=== PATIENT | male | born 1990 | race Caucasian/White ===

== ENCOUNTER 2017-04-02 21:36 | Emergency (ER) | payer SELFPAY ==
[~2017-04-02] VITALS: Ht 190.5 cm; Wt 78.0 kg
== END 2017-04-02 23:40 | disposition left against medical advice (07) ==
LOC: ER 21:36
DX: S16.1XXA Strain of muscle, fascia and tendon at neck level, initial encounter (principal); S40.011A Contusion of right shoulder, initial encounter; S20.211A Contusion of right front wall of thorax, initial encounter; Y04.8XXA Assault by other bodily force, initial encounter
CPT/HCPCS: J1885